=== PATIENT | female | born 1990 | race American Indian/Alaskan Native ===

== ENCOUNTER 2021-10-25 06:20 | Emergency (ER) | payer MEDICAID ==
[2021-10-25] MEDS ORDERED: ACETAMINOPHEN W/CODEINE 300-30 MG TAB PO ONE (07:40)
[2021-10-25] MEDS ORDERED: IBUPROFEN 800 MG TAB PO ONE (07:40)
--- NOTE | 2021-10-25 07:41 | Emergency Department Report ---
- General Chief Complaint: Fever Stated Complaint: BODYACHES/CHILLS Time Seen by Provider: 10/25/21 07:36 Source: patient Mode of arrival: Ambulatory Limitations: No Limitations - History of Present Illness Initial Comments: 31-year-old female with a history of tobacco use and who denies any significant past medical history presents to the ER today with complaints of flulike symp toms. Patient states that symptoms started yesterday. She states that she has been having a cough, mainly nonproductive, diffuse body aches, headache, chills, rhinorrhea nasal congestion. Patient states that she was exposed to a coworker who was Covid 19+. She states that she has not taken a COVID-19 test since she has been sick. She has not gotten a COVID-19 vaccine nor the flu vaccine. She reports no chest pain, shortness of breath, wheezing, abdominal pain, vomiting, diarrhea or any additional symptoms at this time. Last menstrual cycle started yesterday. MD Complaint: cough, rhinorrhea, nasal congestion, other (bodyaches) -: days(s) (1) - Related Data Previous Rx's Medication Instructions Recorded Last Taken Type Acetaminophen/Codeine [Tylenol 1 tab PO Q4HR PRN #12 tablet 10/25/21 Unknown Rx /Codeine # 3 tab] Ibuprofen [Motrin] 600 mg PO Q8H PRN #30 tablet 10/25/21 Unknown Rx Allergies Allergy/AdvReac Type Severity Reaction Status Date / Time No Known Allergies Allergy Unverified 10/25/21 07:34 ED Review of Systems ROS: Stated complaint: BODYACHES/CHILLS Other details as noted in HPI Comment: All other systems reviewed and negative Constitutional: chills ENT: congestion, other (Rhinorrhea) Respiratory: cough. denies: shortness of breath, SOB with exertion, SOB at rest, wheezing Cardiovascular: denies: chest pain, palpitations, dyspnea on exertion, edema, syncope, paroxysmal nocturnal dyspnea Gastrointestinal: denies: abdominal pain, nausea, diarrhea Genitourinary: denies: urgency, dysuria, frequency, hematuria, discharge, abnormal menses, dyspareunia Musculoskeletal: myalgia. denies: back pain, joint swelling, arthralgia Skin: denies: rash, lesions, change in color, change in hair/nails, pruritus Neurological: headache. denies: weakness, paresthesias, abnormal gait, vertigo Psychiatric: denies: anxiety, depression, auditory hallucinations, visual hallucinations, homicidal thoughts, suicidal thoughts Hematological/Lymphatic: denies: easy bleeding, easy bruising, swollen glands ED Past Medical Hx - Medications Home Medications: Home Medications Medication Instructions Recorded Confirmed Last Taken Type Acetaminophen/Codeine [Tylenol 1 tab PO Q4HR PRN #12 tablet 10/25/21 Unknown Rx /Codeine # 3 tab] Ibuprofen [Motrin] 600 mg PO Q8H PRN #30 tablet 10/25/21 Unknown Rx ED Physical Exam - General Limitations: No Limitations General appearance: alert, obese, other (Patient appears uncomfortable, mildly ill-appearing, and tearful at triage.) - Head Head exam: Present: atraumatic, normocephalic, normal inspection - Eye Eye exam: Present: normal appearance, PERRL, EOMI Pupils: Present: normal accommodation - ENT ENT exam: Present: normal exam, mucous membranes moist - Neck Neck exam: Present: normal inspection, full ROM. Absent: meningismus - Respiratory Respiratory exam: Present: normal lung sounds bilaterally. Absent: respiratory distress, wheezes, rales, rhonchi - Cardiovascular Cardiovascular Exam: Present: regular rate, normal rhythm, normal heart sounds - GI/Abdominal GI/Abdominal exam: Present: soft. Absent: distended, tenderness, guarding, rebound - Neurological Exam Neurological exam: Present: alert, oriented X3, CN II-XII intact, normal gait - Psychiatric Psychiatric exam: Present: normal affect, normal mood - Skin Skin exam: Present: intact ED Course Vital Signs 10/25/21 07:31 Temperature 99.2 F Pulse Rate 92 H Respiratory 18 Rate Blood Pressure 171/94 [Right] O2 Sat by Pulse 99 Oximetry ED Medical Decision Making - Medical Decision Making Rapid flu negative. Patient is nontoxic, she is not significantly ill-appearing. She appears well- hydrated. She is neurologically intact with a normal gait. She has no meningeal signs on exam. Chest is clear to auscultation. Abdomen soft and nontender. Patient is hemodynamically stable with stable vital signs. Suspect nonspecific viral illness at this time, but patient was exposed to someone with COVID-19 and that could also be a possibility. There is no indication for any continued emergent testing/additional work-up or admission. Discussed results with patient. Discussed concerning diagnosis with patient. Recommend that she get a COVID-19 test when she leaves here and she can have it done at either urgent care or pharmacy. Patient's treatment will be geared to her symptoms at this time. Medications discussed with patient. Patient instructed to follow-up with her PCP. She expressed understanding agree with plan. Patient stable at time of discharge. Critical care attestation.: If time is entered above; I have spent that time in minutes in the direct care of this critically ill patient, excluding procedure time. ED Disposition Clinical Impression: Viral syndrome, Exposure to COVID-19 virus Disposition: HOME / SELF CARE / HOMELESS Is pt being admited?: No Does the pt Need Aspirin: No Condition: Stable Instructions: Viral Illness, Adult Additional Instructions: I recommend that you take the medication as prescribed to help with your symptoms. Drink lots of fluids to maintain hydration. Take a multivitamin containing vitamin C, zinc and vitamin D. You can take [id number] cough cold medications to help your symptoms. Most importantly I recommend getting a COVID-19 test at a local urgent care pharmacy once you leave the department. Quarantine until you get the results of your test. If your test is positive you need to quarantine for the next 10 to 14 days. Follow-up with your PCP. Return to the ER if any point your symptoms worsens. Prescriptions: Ibuprofen [Motrin] 600 mg PO Q8H PRN #30 tablet PRN Reason: Pain Acetaminophen/Codeine [Tylenol /Codeine # 3 tab] 1 tab PO Q4HR PRN #12 tablet PRN Reason: Pain Referrals: WILLIAMS KILLIAN MD [Staff Physician] - 3-5 Days Forms: Work/School Release Form(ED) Time of Disposition: 08:28
[2021-10-25 09:02] VITALS: BP 147/89
== END 2021-10-25 09:12 | disposition home or self-care (01) ==
LOC: ED 06:20
DX: B34.9 Viral infection, unspecified (principal); Z20.822 Contact with and (suspected) exposure to COVID-19
CPT/HCPCS: 87400; 99283